=== PATIENT | female | born 1995 | race Caucasian/White ===

== ENCOUNTER 2024-05-08 20:41 | Outpatient (CLI) | payer MEDICAID, SELFPAY ==
[2024-05-08 21:08] VITALS: BMI 30.7
[2024-05-08 21:23] VITALS: RESP 17; TEMP 36.4
[2024-05-08 21:31] VITALS: BP 115/61; PULSE 71; O2SAT 99
[2024-05-08 22:31] VITALS: PULSE 69; RESP 17; TEMP 36.6; O2SAT 100
[2024-05-08 22:32] VITALS: BP 115/66; PULSE 63
== END 2024-05-08 22:51 | disposition home or self-care (01) ==
LOC: WPOUT 21:04 → WP 21:05
PROVIDERS: Referring Provider Obstetrics & Gynecology; Visit Provider Obstetrics & Gynecology
DX: Z00.00 Encounter for general adult medical examination without abnormal findings (principal)
CPT/HCPCS: 99221; G0378